=== PATIENT | female | born 1995 | race Caucasian/White ===

== ENCOUNTER 2023-08-01 05:53 | Inpatient (IN) | payer BC ==
[2023-08-01] MEDS ORDERED: miSOPROStoL 200 MCG TAB PO PRN (06:07)
[2023-08-01] MEDS ORDERED: TERBUTALINE 1 MG/ML VIAL SQ PRN (06:07)
[2023-08-01] MEDS ORDERED: CARBOPROST TROMETHAMINE 250 MCG/ML 1 ML AMP IM PRN (06:07)
[2023-08-01] MEDS ORDERED: OXYTOCIN 10 UNIT/ML 1 ML VIAL IM PRN (06:07)
[2023-08-01] MEDS ORDERED: TRANEXAMIC 1,000 MG/100ML-NACL 1,000 MG in EMPTY BAG 1 BAG IV PRN (06:07)
[2023-08-01] MEDS ORDERED: METHYLERGONOVINE 0.2 MG/ML 1 ML AMP IM PRN (06:07)
[2023-08-01] MEDS ORDERED: LIDOCAINE 0.5% (PF) 5 MG/ML (50 ML SDV) SQ PRN (06:07)
[2023-08-01] MEDS: LACTATED RINGERS 1,000 ML IV SCH (06:28)
[2023-08-01] MEDS: OXYTOCIN 30 UNITS/500 ML NS 30 UNIT in SALINE 1 500ML.BAG IV SCH (06:29)
[2023-08-01 06:40] LABS: Basophils # (A) 0.1 k/uL (0-0.2); Basophils % (A) 1 %; Eosinophils # (A) 0.6 k/uL (0-0.7); Eosinophils % (A) 4 %; HCT 40.7 % (34.0-46.0); HGB 13.7 gm/dL (11.4-16.0); Lymphocytes # (A) 3.6 k/uL (1.0-4.8); Lymphocytes % (A) 25 %; MCH 30.6 pg (25.0-35.0); MCHC 33.7 g/dL (31.0-37.0); MCV 90.7 fL (80.0-100.0); Mean Platelet Volume 11.5; Monocytes # (A) 0.7 k/uL (0-1.0); Monocytes % (A) 5 %; Neutrophils # (A) 9.2 k/uL (1.3-7.7); Neutrophils % (A) 63 %; Platelet Count 280 k/uL (150-450); RBC 4.49 m/uL (3.80-5.40); RDW 14.1 % (11.5-15.5); WBC 14.6 k/uL (3.8-10.6)
[2023-08-01] MEDS ORDERED: NALBUPHINE 10 MG/ML (10 ML MDV) IV PRN (10:24)
[2023-08-01] MEDS ORDERED: ROPIVACAINE 5 MG/ML 30 ML VIAL ONE (16:45)
[2023-08-01] MEDS ORDERED: SODIUM CHLORIDE 0.9% 250 ML BAG ONE (16:45)
[2023-08-01] MEDS ORDERED: fentaNYL (PF) 50 MCG/ML 5 ML AMP ONE (16:45)
[2023-08-01] MEDS ORDERED: ZOLPIDEM 5 MG TAB PO PRN (19:02)
[2023-08-01] MEDS ORDERED: BENZOCAINE/MENTHOL SPRAY 1 GM/SPRAY AEROSOL TOPICAL PRN (19:02)
[2023-08-01] MEDS ORDERED: LANOLIN CREAM 1 GM TUBE TOPICAL PRN (19:02)
[2023-08-01] MEDS ORDERED: SIMETHICONE 80 MG CHEWABLE PO PRN (19:02)
[2023-08-01] MEDS ORDERED: diphenhydrAMINE 25 MG CAP PO PRN (19:02)
[2023-08-01] MEDS ORDERED: diphenhydrAMINE 50 MG CAP PO PRN (19:02)
[2023-08-01] MEDS ORDERED: HYDROCORTISONE 2.5% RECTAL CREAM 30 GM TUBE RECTAL PRN (19:02)
[2023-08-01] MEDS ORDERED: diphenhydrAMINE 50 MG/ML 1 ML VIAL IVP PRN ×2 (19:02)
--- NOTE | 2023-08-01 19:02 | P.HPOB ---
History of Present Illness H&P Date: 08/01/23 Chief Complaint: IUP at 39 weeks, marginal cord insertion, SGA 28-year-old 1 para 0 at 39 weeks of gestation that presents for induction of labor. Patient had been receiving routine care which has been complicated by a marginal cord insertion and SGA, last measurement on infant was 15th percentile. testing has been normal for this patient. Patient notes good movement notes an occasional contraction denies vaginal bleeding or loss of fluid. Review of Systems Constitutional: Denies fatigue, Denies fever Ears, nose, mouth and throat: Denies headache Cardiovascular: Denies leg edema Respiratory: Denies dyspnea Gastrointestinal: Denies constipation, Denies diarrhea, Denies nausea, Denies vomiting Genitourinary: Reports Past Medical History History of Any Multi-Drug Resistant Organisms: None Reported Past Anesthesia/Blood Transfusion Reactions: No Reported Reaction Smoking Status: Never smoker Medications and Allergies Home Medications Medication Instructions Recorded Confirmed Type Vit No.179/Iron/Folic 1 tab PO DAILY 08/01/23 08/01/23 History [ Tablet] Allergies Allergy/AdvReac Type Severity Reaction Status Date / Time No Known Allergies Allergy Verified 08/01/23 06:05 Exam Osteopathic Statement: *. No significant issues noted on an osteopathic structural exam other than those noted in the History and Physical/Consult. Vital Signs Temp Pulse Resp BP Pulse Ox 08/01/23 06:04 97.6 F 82 16 136/84 99 Intake and Output 07/31/23 08/01/23 08/01/23 22:59 06:59 14:59 Other: Weight 71.668 kg Targeted physical exam is performed this date General is a well-nourished well- developed female in no acute distress, breathing is noted to be unlabored, heart has a regular rate and rhythm, abdomen is gravid, on cervical e xam she is 2-3/50/-2 station amniotomy is performed and clear fluid was obtained. heart tones are noted to be category 1 and she is montserrat every 1 to 3 minutes. Results Result Diagrams: 08/01/23 06:00 Abnormal Lab Results - Last 24 Hours (Table) 08/01/23 Range/Units 06:00 WBC 14.6 H (3.8-10.6) k/uL Neutrophils # 9.2 H (1.3-7.7) k/uL Assessment and Plan (1) Term Current Visit: Yes Status: Acute Code(s): Z34.90 - ENCNTR FOR SUPRVSN OF NORMAL , UNSP, UNSP TRIMESTER SNOMED Code(s): 40115512 (2) Marginal insertion of umbilical cord Current Visit: Yes Status: Acute Code(s): ICD3053 - SNOMED Code(s): 01465944 (3) SGA (small for gestational age), , affecting care of mother, antepartum Current Visit: Yes Status: Acute Code(s): O36.5990 - MATERN CARE FOR OTH OR SUSP POOR FETL GRTH, UNSP TRI, UNSP SNOMED Code(s): 300154566 Plan: 28 yo at 39 weeks that presents for induction of labor for marginal cord insertion and SGA, 15%ile. Patient is admitted and Pitocin induction of labor has begun. Amniotomy is performed and clear fluid was obtained. Options for analgesia are discussed including Nubain, nitrous, epidural. Patient states she will consider.
--- NOTE | 2023-08-01 19:02 | P.PROBDLV ---
Vaginal Delivery Note - . Vaginal Delivery Note: 28-year-old 1 para 0 that presents to labor and delivery at 39-1/7 weeks for induction of labor secondary to marginal cord insertion and SGA. Patient is admitted and Pitocin induction of labor has begun. Amniotomy is performed and clear fluid was obtained. Patient progressed through labor eventually becoming uncomfortable and requesting epidural placement. Epidural was placed without difficulty by the anesthesia department. Patient made good progress toward complete. Once completely dilated she began pushing and had a normal spontaneous vaginal delivery of a viable female infant at 1841, weight of 6 pounds 1 ounce. Infant did have a left compound hand upon delivery. After 2- minute delay the umbilical cord was doubly clamped and cut. The stent was delivered spontaneously intact with a three-vessel cord being noted. The left labial laceration was appreciated after delivery. This was repaired in the usual fashion with 4-0 chromic. The uterus was noted to be firm and below the umbilicus after repair of the labial laceration. Laceration was inspected and hemostasis was appreciated. All counts were noted be correct x 2 at the end of the delivery. Patient and infant tolerated delivery well and are resting comfortably.
[2023-08-01] MEDS: ACETAMINOPHEN TAB 500 MG TAB PO STA (20:08)
[2023-08-01] MEDS: IBUPROFEN 600 MG TAB PO SCH (20:11)
[2023-08-01] MEDS: SENNOSIDES-DOCUSATE SODIUM 1 EACH TAB PO SCH (20:11)
[2023-08-02 06:38] LABS: Basophils # (A) 0.1 k/uL (0-0.2); Basophils % (A) 0 %; Eosinophils # (A) 0.3 k/uL (0-0.7); Eosinophils % (A) 2 %; HCT 37.5 % (34.0-46.0); HGB 12.1 gm/dL (11.4-16.0); Lymphocytes # (A) 2.9 k/uL (1.0-4.8); Lymphocytes % (A) 16 %; MCH 29.9 pg (25.0-35.0); MCHC 32.4 g/dL (31.0-37.0); MCV 92.3 fL (80.0-100.0); Mean Platelet Volume 10.8; Monocytes # (A) 1.2 k/uL (0-1.0); Monocytes % (A) 6 %; Neutrophils # (A) 13.7 k/uL (1.3-7.7); Neutrophils % (A) 75 %; Platelet Count 229 k/uL (150-450); RBC 4.06 m/uL (3.80-5.40); RDW 13.8 % (11.5-15.5); WBC 18.3 k/uL (3.8-10.6)
[2023-08-02] MEDS: ACETAMINOPHEN TAB 325 MG TAB PO PRN (07:34)
--- NOTE | 2023-08-02 09:42 | P.DS ---
Providers Date of admission: 08/01/23 05:53 Expected date of discharge: 08/02/23 Attending physician: Tila Camarena Primary care physician: Stated None - Discharge Diagnosis(es) (1) Term Current Visit: Yes Status: Acute (2) Marginal insertion of umbilical cord Current Visit: Yes Status: Acute (3) SGA (small for gestational age), , affecting care of mother, antepartum Current Visit: Yes Status: Acute Hospital Course: This is a 28-year-old 1 para 0 that presented to labor and delivery at 39-1/7 weeks for induction of labor secondary to marginal cord insertion of the placenta, bilobed placenta, SGA with the around the 15th percentile on last estimated weight. For full details in this patient please see the dictated history and physical. Patient was admitted to labor and delivery and Pitocin induction of labor was begun. Patient progressed well through labor eventually becoming uncomfortable and requesting epidural placement. Epidural was placed without difficulty by the anesthesia department. Patient made quick progress toward complete began pushing and had a normal spontaneous vaginal delivery of a viable female at 1841, weight of 6 pounds 1 ounces, Apgars of 9 and 9 at 1 and 5 minutes respectively. Patient did sustain a left labial laceration which was repaired in the usual fashion with 4-0 chromic. Patient has done well . She is ambulating and voiding without difficulty. She is tolerating a regular diet without nausea or vomiting. She states her pain is well-controlled. She is breast-feeding without difficulty. Patient Condition at Discharge: Good Plan - Discharge Summary Discharge Rx Participant: Yes New Discharge Prescriptions: No Action Vit No.179/Iron/Folic [ Tablet] 1 tab PO DAILY Discharge Medication List Vit No.179/Iron/Folic [ Tablet] 1 tab PO DAILY 08/01/23 [Hi story] Follow up Appointment(s)/Referral(s): Tila Camarena DO [Doctor of Osteopathic Medicine] - 2 Weeks Patient Instructions/Handouts: Vaginal Delivery (DC), Vaginal Delivery (GEN) Activity/Diet/Wound Care/Special Instructions: No intercourse, tampons or douching. No heavy lifting greater than a gallon of milk. No driving for two weeks. Call with any fever, shakes or chills, with any pain not alleviated by over the counter meds, or with any quesions or concerns. Discharge Disposition: HOME SELF-CARE
[2023-08-02 17:22] VITALS: BP 106/69; PULSE 76; RESP 20; TEMP 97.6
== END 2023-08-02 19:55 | disposition home or self-care (01) | DRG 807 ==
LOC: 4FBP 05:53
PROVIDERS: ADMIT Obstetrics & Gynecology Obstetrics; ATTEND Obstetrics & Gynecology Obstetrics
PROC: 0HQ9XZZ Repair Perineum Skin, External Approach (ICD-10-PCS; principal; 2023-08-01)
PROC: 3E033VJ Introduction of Other Hormone into Peripheral Vein, Percutaneous Approach (ICD-10-PCS; principal; 2023-08-01)
PROC: 10E0XZZ Delivery of Products of Conception, External Approach (ICD-10-PCS; principal; 2023-08-01)
PROC: 10907ZC Drainage of Amniotic Fluid, Therapeutic from Products of Conception, Via Natural or Artificial Opening (ICD-10-PCS; principal; 2023-08-01)
DX: O43.193 Other malformation of placenta, third trimester (principal); O36.5930 Maternal care for other known or suspected poor fetal growth, third trimester, not applicable or unspecified; O32.6XX0 Maternal care for compound presentation, not applicable or unspecified; O70.0 First degree perineal laceration during delivery; Z28.310 Unvaccinated for COVID-19; Z3A.39 39 weeks gestation of pregnancy; Z37.0 Single live birth
CPT/HCPCS: 85025; 86850; 86900; 86901